=== PATIENT | female | born 1960 | race Caucasian/White ===

== ENCOUNTER → 2016-08-01 | Outpatient (CLI) | payer OTHER | LOC: CIMAGING 14:05 | PROVIDERS: ATTEND Family Medicine | DX: M25.551 Pain in right hip (principal); M25.552 Pain in left hip; M53.3 Sacrococcygeal disorders, not elsewhere classified | CPT/HCPCS: 73521-PO ==

== ENCOUNTER 2016-10-28 09:14 | Emergency (ER) | payer OTHER ==
[2016-10-28 09:23] VITALS: RESP 16
--- NOTE | 2016-10-28 09:44 | EDPHY ---
H & P Time Seen by Provider: 10/28/16 09:33 HPI/ROS: CHIEF COMPLAINT: Right leg swelling and pain HISTORY OF PRESENT ILLNESS: Pain and swelling in the right leg from the mid thigh down to the mid calf for 1 week. No trauma. No chest pain or shortness of breath. She is trying to work out but it is more painful with motion or weight-bearing. REVIEW OF SYSTEMS: No skin rash and no fever or chills. No twisting or direct blow. No back pain. PAST MEDICAL HISTORY: hypothyroid Social history: Physician clinical trial assistant General Appearance: Alert and conversant, cooperative. Normal range of motion of right hip, right knee slightly limited by pain but extends from full extension to flexion at 90 degrees. Right knee joint stable to varus valgus and anterior posterior drawer. No effusion noted. A little bit of swelling noted around the right knee. No skin changes, not red or hot to the touch. Calf shows some tenderness behind the knee and proximally but normal range of motion of foot and ankle. Normal dorsalis pedis pulse and normal motor and sensory. DTRs 2+ bilaterally patellar. 1+ ankle. Compartments soft and thigh and lower leg. Emergency Department course/MDM: Think it is unlikely she has fracture or arterial occlusion or infection. Ultrasound to evaluate for Montes De Oca cyst or DVT, likely muscular if negative. 1040: Ultrasound per Laura shows Montes De Oca cyst ruptured. Smoking Status: Never smoked Constitutional: Initial Vital Signs Temperature (C) 36.4 C 10/28/16 09:20 Heart Rate 70 10/28/16 09:20 Respiratory Rate 16 10/28/16 09:20 Blood Pressure 120/76 10/28/16 09:20 O2 Sat (%) 99 10/28/16 09:20 O2 Delivery Mode Room Air Allergies/Adverse Reactions: Penicillins Allergy (Verified 10/28/16 09:17) Home Medications: Medication Instructions Recorded Citalopram 10/28/16 Estrogen,Con/M-Progest Acet 10/28/16 Synthroid 10/28/16 Departure - Departure Disposition: Home, Routine, Self-Care Clinical Impression: Montes De Oca's cyst of knee Qualifiers: Laterality: right Qualified Code(s): M71.21 - Synovial cyst of popliteal space [Montes De Oca], right knee Condition: Good Instructions: Bakers Cyst (ED) Referrals: Patricia Loaiza [Primary Care Provider] - As per Instructions Rainer Espinoza MD [Medical Doctor] - As per Instructions
[2016-10-28 11:06] VITALS: BP 113/86; PULSE 67; TEMP 97.9; O2SAT 100
== END 2016-10-28 11:06 | disposition home or self-care (01) ==
DX: M71.21 Synovial cyst of popliteal space [Baker], right knee (principal)

== ENCOUNTER → 2017-03-06 | Outpatient (CLI) | payer OTHER | LOC: CIMAGING 14:32 | PROVIDERS: ATTEND Family Medicine | DX: Z12.31 Encounter for screening mammogram for malignant neoplasm of breast (principal); Z80.3 Family history of malignant neoplasm of breast | CPT/HCPCS: G0202 ==

== ENCOUNTER → 2017-04-12 | Outpatient (CLI) | payer OTHER | LOC: BRMIMAGING 13:18 | PROVIDERS: ATTEND Family Medicine | DX: Z13.820 Encounter for screening for osteoporosis (principal); M85.89 Other specified disorders of bone density and structure, multiple sites ==

== ENCOUNTER → 2018-06-20 | Outpatient (CLI) | payer OTHER | LOC: FIMAGING 13:56 | PROVIDERS: ATTEND Family Medicine | DX: Z12.31 Encounter for screening mammogram for malignant neoplasm of breast (principal) ==